=== PATIENT | female | born 1995 | race Hispanic/Latino ===

== ENCOUNTER 2024-11-23 06:43 | Day surgery (SDC) | payer MEDICAID ==
[2024-11-20 14:41] LABS: BASOPHILS # (AUTO) 0.03 K/uL (0.00-0.20); BASOPHILS % (AUTO) 0.3 % (0.0-5.0); EOSINOPHILS # (AUTO) 0.07 K/uL (0.00-0.70); EOSINOPHILS % (AUTO) 0.8 % (0.0-8.0); HEMATOCRIT 42.4 % (36-48); IMMATURE GRANULOCYTE ABSOLUTE 0.05 K/uL (0-1); LYMPHOCYTES # (AUTO) 2.6 K/uL (1.0-4.8); LYMPHOCYTES % (AUTO) 28.3 % (21.0-51.0); MEAN CORPUSCULAR HEMOGLOBIN 29.8 pg (27.0-33.0); MEAN CORPUSCULAR HGB CONC 34.2 g/dL (32.0-36.0); MEAN CORPUSCULAR VOLUME 87.2 fL (79-99); MONOCYTES # (AUTO) 0.5 K/uL (0.1-1.0); MONOCYTES % (AUTO) 5.5 % (3.0-13.0); NEUTROPHILS # (AUTO) 5.9 K/uL (1.8-7.7); NEUTROPHILS % (AUTO) 64.6 % (40.0-77.0); PLATELET COUNT (AUTO) 376 K/uL (130-400); RED BLOOD CELL COUNT(AUTO) 4.86 MIL/uL (4.00-5.50); RED CELL DISTRIBUTION WIDTH 13.2 % (11.0-15.5); WHITE BLOOD COUNT (AUTO) 9.2 K/uL (4.8-10.8)
[2024-11-20 14:59] VITALS: BP 111/64; PULSE 61; RESP 18; TEMP 97.9
[2024-11-20 15:03] LABS: ALBUMIN 3.9 g/dL (3.5-5.0); BILIRUBIN,TOTAL 0.5 mg/dL (0.2-1.0); CREATININE 0.6 mg/dL (0.5-1.0); POTASSIUM 3.6 mmol/L (3.5-5.1); TOTAL PROTEIN, SERUM 7.7 g/dL (6.0-8.3)
[2024-11-20 15:14] LABS: INR 0.97 (0.85-1.15); PROTHROMBIN TIME 10.3 SEC (9.6-11.6)
[2024-11-20 15:16] LABS: PARTIAL THROMBOPLASTIN TIME 28.5 SEC (26.3-35.5)
--- NOTE | 2024-11-20 19:37 | EKG ---
[facility] Test Date: 2024-11-20 Test Time: 14:27:22 Pat Name: JING IBRAHIM Department: [facility] Room: Gender: F [employer] Activities Adviser: [id number] : 1995 Requested By: SAMUEL CASILLAS Order Number: [id number] Reading MD: Louise Porter Measurements Intervals [place] Rate: 59 P: 19 [place]: 137 QRS: 51 QRSD: 93 T: 63 QT: 427 QTc: 424 Interpretive Statements Sinus rhythm No previous ECG available for comparison Electronically Signed On 11-21-2024 16:48:35 CDT by Louise Porter Please click the below link to view image of tracing.
[~2024-11-23] VITALS: Ht 154.9 cm; Wt 71.8 kg
[2024-11-23] VITALS (12 sets, daily range): BP systolic 95–113; BP diastolic 58–78; PULSE 60–72; RESP 13–18; TEMP 97.2–98.3
[2024-11-23] MEDS: ceFAZolin SODIUM 2 GM VIAL ONE (06:43)
[2024-11-23] MEDS: LACTATED RINGERS 1000ML 1,000 ML IV ONE (06:43)
[2024-11-23] MEDS ORDERED: LACTATED RINGERS 1000ML IV ONE (07:00)
[2024-11-23] MEDS ORDERED: proPOFol 10 MG/ML 20ML VIAL IV ONE (07:19)
[2024-11-23] MEDS ORDERED: LIDOCAINE PF 100MG/5ML (2%) SYRINGE 5ML ONE (07:19)
[2024-11-23] MEDS ORDERED: dexaMETHasone SOD PHOSPHATE 10MG/ML 1ML VIAL ONE (07:19)
[2024-11-23] MEDS ORDERED: ondanSETRON 4MG INJ ONE (07:20)
[2024-11-23] MEDS ORDERED: GLYCOPYRROLATE 0.2 MG/ML 5 ML VIAL ONE (07:20)
[2024-11-23] MEDS ORDERED: SUCCINYLCHOLINE CHLORIDE 20 MG/ML 10 ML VIAL ONE (07:20)
[2024-11-23] MEDS ORDERED: NEOSTIGMINE METHYLSULFATE 1MG/ML IV ONE (07:20)
[2024-11-23] MEDS ORDERED: FENTanyl CITRate PF 50 MCG/1 ML 2ML VIAL ONE ×2 (07:20→08:31)
[2024-11-23] MEDS ORDERED: rocuRONium bROMide 10MG/1ML 5ML VL ONE (07:20)
[2024-11-23] MEDS ORDERED: MIDAZOLAM HCL 1 MG/ML 2ML VIAL ONE (07:23)
[2024-11-23] MEDS ORDERED: acetaMINOPHEN 100 ML ONE (07:34)
[2024-11-23] MEDS ORDERED: FAMOTIDINE 20MG VIAL IV ONE (07:34)
[2024-11-23] MEDS ORDERED: BUPIvacaine/PF 0.25% 30ML VIAL IJ ONE (07:56)
[2024-11-23] MEDS ORDERED: LIDOCAINE 1%-EPI 1:100,000 20 ML VIAL ONE (07:57)
[2024-11-23] MEDS: BUPIvacaine/PF 0.25% 30ML VIAL IJ ONE (08:25)
[2024-11-23] MEDS ORDERED: LIDOCAINE HCL 2% JELLY 5 ML ONE (08:31)
[2024-11-23] MEDS ORDERED: phenylEPHRINE HCL 10 MG/ML 1ML VIAL IV ONE (08:36)
--- NOTE | 2024-11-23 08:47 | OP ---
Operative Note: DATE OF PROCEDURE: 11/23/24 SURGEON: SAMUEL CASILLAS MD FAMILY HELPER: [None.] ANESTHESIA: [General plus local.] PREOPERATIVE DIAGNOSIS: [Anal skin tags.] POSTOPERATIVE DIAGNOSIS: [Same.] SYNOPSIS: [Anal skin tags producing pain and hygiene issues.] PROCEDURE: [Excision of anal skin tags] ESTIMATED BLOOD LOSS: [None] INDICATIONS: [This is a 29-year-old female who presents to clinic with anal pain and discomfort secondary to the presence of anal skin tags. She states that after child they have grown progressively, had an interfering with her hygiene. After discussion with the patient about risks were abrasions, healing, and possibility of forming you tags, she elected to undergo a procedure and gr anted consent.] DESCRIPTION OF PROCEDURE: [The patient was identified in the holding area transferred to the OR placed supine on the operative table. Venodyne boots were placed and more conducted IV antibiotics given. After general anesthesia was obtained, she was placed in lithotomy position with great care taken to pad all pressure points. Anal block was given with 0.25% Marcaine 1% lidocaine with epinephrine. Afterwards, careful examination did not reveal any other pathology. We began the procedure with a dominant tags in the posterior right side. It was grasped and excised carefully with the Bovie cautery avoiding injury to the underlying sphincter. Afterwards the anal derm was approximated with a 3-0 chromic suture. Same procedure was repeated in the right anterior hemorrhoidal bundle. Area was irrigated and aspirated until clear. Hemostasis noted to be excellent. Counts were done and correct. There were no complications. I was present and scrubbed for the entire case.] SAMUEL BERRY MD Nov 23, 2024 08:47
--- NOTE | 2024-11-23 10:16 | NUR ---
Full and complete discharge instructions given to Patient and Family both verbally and in writing. Explained Surgical procedure precautions and follow up. All questions answered. PIV removed with catheter tip intact. Home with Family W/C to POV.
== END 2024-11-23 10:00 | disposition home or self-care (01) ==
LOC: DAH 06:43
PROVIDERS: ATTEND Surgery
DX: K64.4 Residual hemorrhoidal skin tags (principal); K64.0 First degree hemorrhoids; K62.5 Hemorrhage of anus and rectum; L91.8 Other hypertrophic disorders of the skin; E66.9 Obesity, unspecified; Z68.29 Body mass index [BMI] 29.0-29.9, adult
CPT/HCPCS: 80053; 84703; 85025; 85610; 85730; 36415; 93005; 46230; 88304; A4223 ×2; A6260; A4663; A4606; J7120; J3490 ×5; J3010 ×2; J1100; J0330; J0665 ×2; J2003; J2250; J2704; J2405; J2710; J2371; J0690 ×2; A4649; A4215; A4222; A4221; A4216; A4450